=== PATIENT | female | born 1970 | race Caucasian/White ===

== ENCOUNTER → 2016-10-27 | Outpatient (CLI) | payer OTHER ==
--- NOTE | 2016-10-27 13:24 | MR ---
MRI of the Right Knee Clinical Indications: Prior ACL reconstruction. Knee pain. Technique: Fat-suppressed, fast T2-weighted images were acquired axially, sagittally, and coronally. T1-weighted sagittal images were obtained. Findings: The patient has undergone prior intra-articular anterior cruciate ligament reconstruction with metallic interference screws in the femoral tibial tunnels. The graft is well-positioned and int act, without evidence of disruption or mucoid degeneration. Medial compartment: Prior subtotal medial meniscectomy, with diminished volume of the body and poste rior horn of the medial meniscus. At the posteromedial corner, there is slight undersurface contour d eformity of the medial meniscus, associated with a subtle linear area of signal abnormality (image 19 , series 13). This may represent a sequela of prior subtotal medial meniscectomy and surgical repair or a small focal recurrent tear. The anterior horn medial meniscus is intact, and medial compartment articular cartilage is relatively preserved, with mild focal chondral fraying involving the weight-be aring aspect of the medial femoral condyle. Lateral compartment: Lateral meniscus is intact. There is a focal area of chondral thinning involvin g the far posterior aspect of the lateral tibial plateau articular cartilage centrally, grade 2 sever ity, best visualized on sagittal image 9, series 8. The remainder of the articular cartilage of the l ateral compartment is intact. Patellofemoral compartment: No focal chondral lesion. Posterior cruciate ligament is intact. Medial and lateral collateral ligaments are intact. Distal jered driceps and patellar tendons are intact. Impression: 1. Status post intra-articular anterior cruciate ligament reconstruction, intact. 2. Status post subtotal medial meniscectomy. There is slight contour deformity along with linear intr asubstance signal within the posterior horn medial meniscus at the posteromedial corner, potentially related to prior surgery and repair versus small recurrent tear. 3. Focal chondral thinning involving the posterior central aspect of the lateral tibial plateau. Ther e is minimal chondral surface irregularity of weight-bearing aspect medial femoral condyle.
== END ==
LOC: FIMAGING 07:22
PROVIDERS: ATTEND Physician Assistant
DX: M25.561 Pain in right knee (principal); Z98.890 Other specified postprocedural states

== ENCOUNTER → 2017-01-10 | Outpatient (CLI) | payer OTHER | LOC: FIMAGING 16:27 | PROVIDERS: ATTEND Physician Assistant | DX: M23.322 Other meniscus derangements, posterior horn of medial meniscus, left knee (principal); M23.352 Other meniscus derangements, posterior horn of lateral meniscus, left knee; M25.462 Effusion, left knee; M22.42 Chondromalacia patellae, left knee; Z98.890 Other specified postprocedural states ==